=== PATIENT | female | born 1960 | race Caucasian/White ===

== ENCOUNTER → 2016-03-06 | Outpatient (CLI) | payer MEDICAID ==
[~2016-03-06] MED LIST: BREO ELLIPTA1 POW IH; BUPROPION HCL75 M1 PO; CARVEDILOL 1212.5 MG PO; CIPRO 500MG TA500 MG PO; CLINDAMYCIN HC300 MG PO; COREG12.5 MG PO; CYMBALTA60 MG PO; HYDROCODONE-APA1 TA1 PO; KEFLEX 500MG.500 MG PO; LEVAQUIN 500 M500 MG PO; LEVAQUIN500 MG PO; LISINOPRIL10 MG PO; LORTAB 5/500 501 TAB PO; MEDROL 4MG. DOSE4 MG PO; NICOTINE PATCH;21 MG TD; NORCO 325 MG-51 TAB PO; PREDNISONE 20MG20 MG PO; PREDNISONE20 MG PO; PRILOSEC20 MG PO; PROAIR HFA0.09 MG/AC IH; PROTONIX 40MG T40 MG PO; RISPERDAL 1 MG T1 MG PO; TESSALON PERLE100 MG PO; TRAMADOL 512 EACH/PA PO; VENTOLIN H0.09 MG/AC IH; VOLTAREN75 MG PO; ZITHROMAX Z-PA250 M2 PO
[2016-03-06 15:41] LABS: AMPHETAMINES/METAMPHETAMINES NEGATIVE ng/mL (<1000)
[2016-03-06 17:42] LABS: HEMOGLOBIN 15.5 g/dL (12.2-16.2); LYMPH # 2.1 K/mm3 (0.7-4.5); LYMPH % 25.9 % (10-50.0)
[2016-03-06 19:30] LABS: BUN 5 mg/dL (7-18)
[2016-03-06 19:46] LABS: GFR (ESTIMATED) 128 ML/MIN (59-)
== END ==
LOC: LAB 14:29
PROVIDERS: Emergency Medicine
DX: Z79.899 Other long term (current) drug therapy (principal); B95.7 Other staphylococcus as the cause of diseases classified elsewhere

== ENCOUNTER 2016-03-18 18:19 | Observation (INO) | payer MEDICAID ==
[~2016-03-18] VITALS: Ht 165.1 cm; Wt 103.2 kg
[~2016-03-18 18:19] MED LIST changes: -BREO ELLIPTA1 POW IH; -LEVAQUIN500 MG PO
[2016-03-18 18:24] VITALS: BP 153/92
--- NOTE | 2016-03-18 18:38 | Emergency Room Report ---
History of Present Illness Time Seen by 1819 Presenting Problem in Triage Pt arrived:Walked Presenting Problem:PT STATES BREATHING DIFFICULTY THAT BEGAN THREE DAYS AGO. STATES RECENT COUGH THAT IS NONPRODUCTIVE. DENIES V/D. STATES USING VENTOLIN INHALER AT HOME AT 1400. PT STATES WEARING O2 NC AT HOME AT 2L AT ALL TIMES. STATES FEELING TIRED. 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 N Clinical Suspician of Infection? N Mental Status: 1 - Regular (Normal Baseline) Sepsis Risk:Low Sepsis Risk Have you (or family members/close friends) recently traveled outside the [place]? N If Yes, where/when: Have you had exposure to infectious disease within the past month? N TB? Other? Specify: Comment The patient is sent from the office of her primary care practitioner for cough, shortness of breath, and hypoxia. The patient has severe chronic obstructive pulmonary disease and still smokes. She is oxygen dependent. She has an inhaler at home, but not a nebulizer. She has been sick for 3 days with a nonproductive cough, increasing shortness of breath and wheezing. She denies fever. She was admitted to the hospital in October in respiratory failure, she was started on BiPAP, but failed BiPAP and was electively intubated. ALLERGIES Coded Allergies: Penicillins (11/10/15) Sulfa (Sulfonamide Antibiotics) (11/10/15) phenobarbital (11/10/15) Home Medications Active Scripts ALBUTEROL (Ventolin Hfa) 1-2 PUFFS IH Q6HP PRN wheezing #1 POW Prov: 02/13/16 NICOTINE (Nicotine Patch) 21 MG TD DAILY #14 PATCH Ref 1 Prov: 11/16/15 Reported Medications Carvedilol (Carvedilol 12.5MG) 12.5 MG PO BID #60 Risperidone (Risperdal 1 Mg Tab) 2 MG PO QHS Lisinopril 10 MG PO DAILY #30 HYDROCODONE 5MG/APAP 325MG (Hydrocodon-Acetaminophen 5-325) 1 TAB PO BID BUPROPION HCL SR (Wellbutrin SR 100MG) 75 MG PO BID History Medical History General CAD? No Angina: Yes SD: No Hypertension? Yes Hyperlipidemia? Yes CHF? No DVT? No PE? No COPD? Yes Asthma? No Anemia? No GERD? No Gastric ulcers? No GI Bleed? No Hernia? No Thyroid Problems? No Hypothyroidism? No CVA? No Seizures? No Diabetes? No Renal Insuffiency? No End Stage Renal Disease? No UTI? Yes Stones? No BPH? No GB Disease: No Nephritic Syndrome? No Asplenia? No Hepatitis? No Sickle Cell Disease? No Arthritis? No Migraines? No Cataracts? No Glaucoma? No MRSA? No HIV? No TB? No Anxiety? No Depression? No Cancer? Yes Site: R BREAST More? Yes Additional hx: BIPOLAR Immunization Hx DT/Tetanus 5-10 Years Ago Flu [id number] Flu Season Pneumonia Received In Past Surgical Hx Previous Surgery?Y TRIPLE ORTHODESIS R. FOOT X 11. SINCE 1990 LT KNEE ARTHROSCOPY FACIAL SURGERY LUMPECTOMY RT BREAST RIGHT 5TH FINGER COLONSCOPY COLON BIOPSY RN CARDIAC CATH Hx LMP N/A Family History Family Hx Diabetes Yes CAD Yes Hypertension Yes Hyperlipidemia No Cancer Yes TB No Social History Smoking Hx Smoker: Current Every Day Smoker Tobacco: Yes Type Cigarettes Packs/day 1 1/2 - 2 Packs Alcohol Alcohol: Yes Review of Systems All Other Systems Reviewed and Negative Constitutional denies fever Respiratory cough, shortness of breath, wheezing Physical Exam Vital Signs Vital Signs Date Time Temp Pulse Resp B/P Pulse O2 O2 Flow FiO2 Ox Delivery Rate 03/18 1956 77 24 130/82 90 2 03/18 1925 77 24 153/86 95 2 03/18 1855 73 24 107/48 95 2 03/18 1824 97.7 76 24 153/92 91 2 General Appearance obese, alert and talkative Eye Exam - bilateral eye normal exam, bilateral eye PERRL, bilateral eye EOMI Ear, Nose, Throat hearing grossly normal, normal ENT inspection Neck normal inspection, non-tender, supple, full range of motion Respiratory Status Yes: trachea midline, chest symmetrical, non tender chest. No: respiratory distress. Lung Sounds bilateral: wheezing. Cardiovascular normal exam, regular rate/rhythm, no peripheral edema, no gallop, no JVD, no murmur, no rub, normal peripheral pulses Peripheral Pulses Pulses normal Yes Gastrointestinal normal bowel sounds, normal exam, non tender, soft, no organomegaly Back normal inspection, no CVA tenderness, no vertebral tenderness Extremities non-tender, normal range of motion, normal inspection Neurologic alert, dairy bacteriologist II-XII nml as tested, normal exam, oriented x 3 Mental status normal mood/affect Skin intact, normal color, warm/dry Lymphatic no adenopathy Medical Decision Making LABS/Meds/Orders Pt receiving controlled substance in ED? No Results/Orders Laboratory Tests 03/18/16 194: Influenza Type A Ag Pending, Influenza Type B Ag Pending 03/18/161937: VBG pH Pending, VBG Total CO2 Pending, VBG O2 Sat (Calc) Pending, VBG Base Excess Pending, Mixed VBG pCO2 Pending, Mixed VBG pO2 Pending, Mixed VBG HCO3 Pending 03/18/161934: VBG pH Pending, VBG Total CO2 Pending, VBG O2 Sat (Calc) Pending, VBG Base Excess Pending, Mixed VBG pCO2 Pending, Mixed VBG pO2 Pending, Mixed VBG HCO3 Pending 03/18/161834: Lactic Acid 1.1 03/18/161834: Sodium 134 L, Potassium 4.6, Chloride 94 L, Carbon Dioxide 36 H, BUN 7, Creatinine 0.6, Estimated Creat Clear 174, Estimated GFR (MDRD) 103, Glucose 97, Calcium 8.7, Total Bilirubin 0.4, AST 15, ALT 25, Alkaline Phosphatase 125 H, Creatine Kinase 23 L, CK-MB (CK-2) Rel Index 3.5, CK and CKMB Interp 0.8, Troponin I < 0.02, Total Protein 7.1, Albumin 3.3 L, Globulin 3.8 H, Albumin/ Globulin Ratio 0.9 L, WBC 8.3, RBC 4.70, Hgb 14.7, Hct 46.5, MCV 99.0 H, RDW 14.9, Plt Count 276, MPV 8.4, Gran % 68.0, Gran # 5.7, Lymphocytes % 22.6, Monocytes % 7.1, Eosinophils % 1.8, Basophils % 0.3, Lymphocytes # 1.9, Monocytes # 0.6, Eosinophils # 0.2, Basophils # 0.0, PUBS MCHC 31.7 L, MCH 31.3 H Current Medication Orders Sig/Henri Start time Last Medication Dose Route Stop Time Status Admin Levofloxacin/Dextrose 150 ML .STK-MED ONE 03/18 1919 DC IV Levofloxacin/Dextrose 150 ML ONCE ONE 03/18 1914 r 03/18 IV 03/18 Methylprednisolone 0 .STK-MED ONE 03/18 1851 DC Sodium Succinate .ROUTE Albuterol/Ipratropium 3 ML ONCE ONE 03/18 1845 DC 03/18 INH 03/18 1845 184 Methylprednisolone 125 MG ONCE ONE 03/18 1844 DC 03/18 Sodium Succinate IV 03/18 184 185 Orders Procedure Date/time Status Decision to admit 03/18 1952 Active CULTURE, SPUTUM 03/18 1917 Active INFLUENZA A&B ANTIGENS 03/18 1915 Active RT REQUEST DUONEB 03/18 1834 Active ARTERIAL BLOOD GAS REQUEST 03/18 1834 Active CHEST-PORTABLE 03/18 1834 Active CULTURE, BLOOD 03/18 1834 Active LACTIC ACID 03/18 1834 Complete CBC WITH AUTO DIFF 03/18 1834 Complete CARDIAC ENZYMES 03/18 1834 Complete CHEM 12 PROFILE 03/18 1834 Complete XRAY/CT/US XRAY/CT/US XRAY chest Comment X-ray interpreted by Lowell Smiley M.D.: Haziness of both lower lungs, possibly due to overlying breast tissue. No effusions seen. Progress - Patient refused arterial blood gas. 8:00 PM: I have discussed the case with Dr. Butler for Dr. Dover who agrees to admit the patient to the hospital. We discussed the patient's clinical information, including history, exam, laboratory and radiology results and ED course. Per hospital procedure, I will write temporary bridge inpatient orders on the patient. Specific orders requested by the admitting physician: Handheld nebulizers, steroids, antibiotics Departure Departure Disposition Still a Patient Clinical Impression Primary Impression: Chronic obstructive pulmonary disease with (acute) exacerbation Secondary Impressions: Acute bronchitis Qualifiers: Bronchitis organism: unspecified organism Qualified Code: J20.9 - Acute bronchitis, unspecified Hypoxia Condition STABLE Referrals Casey Frias (Family) ED Critical Care Critical Care No at 2000
[2016-03-18 18:47] LABS: HEMOGLOBIN 14.7 g/dL (12.2-16.2); LYMPH # 1.9 K/mm3 (0.7-4.5); LYMPH % 22.6 % (10-50.0)
[2016-03-18 19:08] LABS: BUN 7 mg/dL (7-18); GFR (ESTIMATED) 103 ML/MIN (59-)
[2016-03-18 22:12] VITALS: BP 130/82
[2016-03-19] VITALS (7 sets, daily range): BP systolic 134–154; BP diastolic 70–93
--- NOTE | 2016-03-19 06:12 | RADIOLOGY REPORT PS360 ---
CHEST-PORTABLE HISTORY: COUGH COMPARISON: 02/13/2016 FINDINGS: The study is underpenetrated and there are low lung volumes. There is prominence of the joelle and left greater than right with borderline cardiomegaly. Cannot adequately evaluate the mid to lower lung zones due to the technique. Recommend upright PA and lateral chest for further evaluation. There is increased density in the right lower lobe which could be due to underlying atelectasis or infiltrate. IMPRESSION: Limited study with prominent left hilum and possible right lower lobe atelectasis or infiltrate. Follow-up recommended
--- NOTE | 2016-03-19 06:59 | PHARMACY CLINIC NOTE ---
Patient Demographics Patient Demographics Admission date: 03/18/16 Date: 03/19/16 Time: 0659 Allergies Coded Allergies: Penicillins (11/10/15) Sulfa (Sulfonamide Antibiotics) (11/10/15) phenobarbital (11/10/15) HEIGHT- FT: 5 IN: 5.00 K.165 VTE General Information Labs: Laboratory Tests 03/18 1835 Hematology Hgb (12.2 - 16.2 g/dL) 14.7 Hct (37.0 - 47.0 %) 46.5 Plt Count (142 - 424 K/mm3) 276 Disclaimer The following section includes nursing documentation that has been pulled in for pharmacy review. Patient's VTE score: 6 Patient's VTE Risk: MOD RISK Clinical trial participant? No VTE prophylaxis NQF [id number] VTE prophylaxis ordered? Yes Type of prophylaxis/treatment: MY at 0659
--- NOTE | 2016-03-19 08:54 | HISTORY AND PHYSICAL REPORT ---
Demographics: Admit date: 03/18/16 Chief complaint: SOB PRIMARY DIAGNOSIS: COPD Allergies: Coded Allergies: Penicillins (11/10/15) Sulfa (Sulfonamide Antibiotics) (11/10/15) phenobarbital (11/10/15) History of present illness: History of present illness: 55 yr old female presents to ed after being seen in office yesterday for sob. Pt c/o of sob, cough and low o2 sat(82%). Pt states smoking 1 ppd, home 02 at night ,and sob that increases with walking. Pt states having a cold for 3 days and cough increasing. Pt states last pm she had a episode of confusion, unable to communicate and legs becoming weak in legs. Admited and cardiology consult to eval sob, d dimer to r/o pe, doppler to r/o tia. Past medical history: Family HX Diabetes Yes CAD Yes Hypertension Yes Hyperlipidemia No Cancer Yes TB No Immunization HX DT/Tetanus Unknown Flu 2015-FSN Pneumonia Received In Past TB Test in last year No General CAD? No Angina: Yes GA: No Hypertension? Yes Hyperlipidemia? No CHF? No DVT? No PE? No COPD? Yes Asthma? No Anemia? No GERD? No Gastric ulcers? No GI Bleed? No Hernia? No Thyroid Problems? No Hypothyroidism? No CVA? No Seizures? No Diabetes? No Renal Insuffiency? No UTI? Yes Stones? No BPH? No GB Disease: No Nephritic Syndrome? No Asplenia? No Hepatitis? No Sickle Cell Disease? No Arthritis? No Migraines? No Cataracts? No Glaucoma? No MRSA? No HIV? No TB? No Anxiety? No Depression? No Cancer? No Site: R BREAST More? Yes Additional hx: BIPOLAR Past Surgical HX Previous Surgery?Y TRIPLE ORTHODESIS R. FOOT X 11. SINCE 1990 LT KNEE ARTHROSCOPY FACIAL SURGERY LUMPECTOMY RT BREAST RIGHT 5TH FINGER COLONSCOPY COLON BIOPSY Current home meds: Active Scripts ALBUTEROL (Ventolin Hfa) 1-2 PUFFS IH Q6HP PRN wheezing #1 POW Prov: 02/13/16 NICOTINE (Nicotine Patch) 21 MG TD DAILY #14 PATCH Ref 1 Prov: 11/16/15 Reported Medications Carvedilol (Carvedilol 12.5MG) 12.5 MG PO BID #60 Risperidone (Risperdal 1 Mg Tab) 2 MG PO QHS Lisinopril 10 MG PO DAILY #30 HYDROCODONE 5MG/APAP 325MG (Hydrocodon-Acetaminophen 5-325) 1 TAB PO BID BUPROPION HCL SR (Wellbutrin SR 100MG) 75 MG PO BID Social Hx: Smoking HX Tobacco Yes Type Cigarettes Packs/day 1 1/2 - 2 PACKS Are you/the child exposed to second-hand smoke: Yes Alcohol Alcohol: No Hx of Drug Use Drug Use? No Review of systems: Constitutional see HPI, weakness. Respiratory see HPI, cough, shortness of breath, SOB with excertion, SOB at rest, wheezing. Cardiovascular see HPI Gastrointestinal/Abdominal No see HPI Genitourinary No: see HPI. Musculoskeletal No: no symptoms reported. Skin No: no symptoms reported. Neurological Yes: see HPI, weakness. Psychiatric Yes: anxious. Exam: Lab data for last 24 hours: Laboratory Tests 03/18/16 2020: VBG pH 7.28 L, VBG Total CO2 42.0 H, VBG O2 Sat (Calc) 26 L, Mixed VBG pCO2 84.5 H, Mixed VBG pO2 21.0 L, Mixed VBG HCO3 39.4 H 03/18/16 1940: Influenza Type A Ag NOT DETECTED, Influenza Type B Ag NOT DETECTED 03/18/161834: Lactic Acid 1.1 03/18/161834: Sodium 134 L, Potassium 4.6, Chloride 94 L, Carbon Dioxide 36 H, BUN 7, Creatinine 0.6, Estimated Creat Clear 174, Estimated GFR (MDRD) 103, Glucose 97, Calcium 8.7, Total Bilirubin 0.4, AST 15, ALT 25, Alkaline Phosphatase 125 H, Creatine Kinase 23 L, CK-MB (CK-2) Rel Index 3.5, CK and CKMB Interp 0.8, Troponin I < 0.02, Total Protein 7.1, Albumin 3.3 L, Globulin 3.8 H, Albumin/ Globulin Ratio 0.9 L, WBC 8.3, RBC 4.70, Hgb 14.7, Hct 46.5, MCV 99.0 H, RDW 14.9, Plt Count 276, MPV 8.4, Gran % 68.0, Gran # 5.7, Lymphocytes % 22.6, Monocytes % 7.1, Eosinophils % 1.8, Basophils % 0.3, Lymphocytes # 1.9, Monocytes # 0.6, Eosinophils # 0.2, Basophils # 0.0, PUBS MCHC 31.7 L, MCH 31.3 H Microbiology 03/18 1914 SPUTUM: Sputum Culture - RES 03/18 1914 SPUTUM: Gram Stain - RES 03/18 1834 BLOOD: Anaerobic Blood Culture - RECD 03/18 1834 BLOOD: Aerobic Blood Culture - RECD 03/18 1834 BLOOD: Anaerobic Blood Culture - RECD 03/18 1834 BLOOD: Aerobic Blood Culture - RECD Admission vital signs: 1ST Vital Signs Result Date Time Pulse Ox 91 03/18 1823 B/P 153/92 03/18 1823 O2 Flow Rate 2 03/18 1823 Temp 97.7 03/18 1823 Pulse 76 03/18 1824 Resp 24 03/18 1823 O2 Delivery OXYGEN 03/18 2211 Exam General appearance: normal appearance, alert, active, awake, no acute distress Eyes: normal exam, PERRLA ENT: normal exam Neck: normal inspection, full range of motion Cardiovascular: normal exam, regular rate & rhythm Respiratory: no respiratory distress, on oxygen, diminished breath sounds, wheezing ABD: normal exam, soft Genitourinary: normal voiding & quantity Extremities: normal exam, warm Musculoskeletal: normal exam Skin: normal exam, intact, warm Neuro: normal exam, alert, cardiac cath lab radiology technologist II-XII nml as tested, intact, no deficit, oriented Plan: Problem List 1. COPD exacerbation 2. Acute bronchitis 3. Hypoxia 4. TIA (transient ischemic attack) Plan: rounded with shelia. at 0853
[2016-03-19 09:41] LABS: ALLEN'S TEST ACCEPTABLE; OXYGEN 28
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
--- NOTE | 2016-03-19 11:49 | CARDIOVASCULAR REPORT ---
"Cerebrovascular Exam Indications: TIA 434.91. TDE. Pt not cooperative, she was either moving or snoring. Very limited images. IMPRESSIONS 1. The bilateral vertebral arteries are patent with normal antegrade flow. 2. Study suggests less than 20% stenosis involving the right internal carotid artery and the left internal carotid artery. Carotid duplex study. Complete study and Doppler flow study including spectral analysis, color and martin scale imaging. Height: Height: 165.1cm. Height: 65in. Weight: Weight: 103kg. Weight: 226.5lb. Body mass index: BMI: 37.8kg/m^2. Body surface area: BSA: 2.22m^2. Location: Bedside. Patient status: Inpatient. Tables: Arterial flow: + +--------+--------+ |Location |V sys |V ed | + +--------+--------+ |Right CCA - proximal|132cm/s |25.9cm/s| + +--------+--------+ |Right CCA - distal |122cm/s |36.9cm/s| + +--------+--------+ |Right ECA |70.4cm/s|--------| + +--------+--------+ |Right ICA - proximal|127cm/s |37.1cm/s| + +--------+--------+ |Right ICA - mid |122cm/s |42.7cm/s| + +--------+--------+ |Right ICA - distal |111cm/s |33.3cm/s| + +--------+--------+ |Right vertebral |74.2cm/s|--------| + +--------+--------+ |Left CCA - proximal |125cm/s |27.7cm/s| + +--------+--------+ |Left CCA - distal |121cm/s |35.8cm/s| + +--------+--------+ |Left ECA |93cm/s |--------| + +--------+--------+ |Left ICA - proximal |128cm/s |46.8cm/s| + +--------+--------+ |Left ICA - mid |127cm/s |47.5cm/s| + +--------+--------+ |Left ICA - distal |133cm/s |53.1cm/s| + +--------+--------+ |Left vertebral |77.9cm/s|--------| + +--------+--------+ Velocity ratios: + + + + + + | |Right, V sys|Right, V ed|Left, V sys|Left, V ed| + + + + + + |Max ICA/dist CCA|1.04 |1.16 |1.1 |1.48 | + + + + + + (Report amended ) Electronically signed by: Man Langley [id number]"
--- NOTE | 2016-03-19 13:27 | RADIOLOGY REPORT PS360 ---
CTA-CHEST HISTORY: ELEVATED D-DIMER,SOA,BRONCHITIS, PE PROTOCOL ORDERING PHYSICIAN: Jonathon Dover MD PATIENT AGE: 55 years TECHNIQUE: Helical acquisition obtained following the bolus administration of 60 mL of Isovue 370 followed by a saline bolus. Axial, sagittal, and coronal reformatted images are generated and reviewed. COMPARISON: 11/10/2015 FINDINGS: No evidence of pulmonary was. No evidence of aortic aneurysm or dissection. No mediastinal or hilar mass. There are a few small lymph nodes in mediastinum. There are dependent changes in the posterior hemithoraces bilaterally. Atelectatic changes are present in the left lower lobe medially and in the right lung base posteriorly. Previously noted left upper lobe collapse has resolved. No lobar consolidation or collapse. There are some atelectatic or fibrotic changes within the left upper lobe medially. No pleural effusion. Upper abdominal images are unremarkable. There are old bilateral rib fractures IMPRESSION: 1. No evidence of pulmonary embolus, aortic aneurysm, or dissection. 2. Atelectatic changes in the left lower lobe medially and in the right lung base posteriorly. 3. Old bilateral rib fractures
--- NOTE | 2016-03-19 17:04 | RADIOLOGY REPORT PS360 ---
ECHO ADULT PROCEDURE: 2-D M-mode and color Doppler study INDICATIONS FOR THE TEST: Chest pain + COPD+ Heart Murmur Tobacco Smoking+ Palpitations Fatigue Syncope+ Edema+ Hypertension+Diabetes Mellitus Rheumatic Fever SOB+FUENTES Obesity+Hyperlipidemia Family History HD Additional History PATIENT INFORMATION HEIGHT: 65 WEIGHT:227 GENDER: Female B/P:153/75 2-D/M-MODE INTERPRETATION: 2-D MEASUREMENTS OBSERVED VALUES IN CMS Right Ventricular Dimension (RVDd) 2.8 Interventricular Septum (Thickness)(IVsd) 1.4 Left Ventricular Internal Dimensions(LVIDd) 5.1 Left Ventricular Posterior Wall (Thickness)(LVPWd) 1.2 Aortic Root 2.5 Aortic Cusp Separation 2.2 Left Atrial Dimensions (LAD) 4.4 2D 1. The left atrium is mildly enlarged, the left ventricle is normal size, there is mild concentric left ventricular hypertrophy present, visually estimated ejection fraction of 55-60% with no obvious regional wall motion abnormality. 2. Mildly enlarged right ventricle with normal contractility, right atrium is mildly enlarged. 3. The aortic valve is minimally thickened and fibrosed, there is no aortic stenosis. 4. The mitral valve leaflets are minimally thickened there is no obvious mitral valve prolapse. There is no mitral stenosis. 5. The pulmonic valve not well visualized. 6. No significant pericardial effusion noted DOPPLER INTERROGATION: 1. The aortic outflow velocities within normal range, there is no aortic stenosis or aortic insufficiency. 2. The mitral inflow velocity within normal range, there is no mitral stenosis, there is mild mitral regurgitation. 3. There is mild tricuspid regurgitation noted, tricuspid regurgitant jet velocity insufficient for calculation of the right ventricular systolic pressure. 4. No significant pulmonic insufficiency seen. CONCLUSION: 1. Mild biatrial enlargement, normal left ventricular size, mild concentric left ventricular hypertrophy, visually estimated ejection fraction 55-60% with no obvious regional wall motion abnormality. 2. Mildly enlarged right ventricle with normal contractility. 3. Mild mitral and tricuspid regurgitation, tricuspid regurgitant jet velocity insufficient for acquisition of the right ventricular systolic pressure. 4. No significant pericardial effusion noted.
[2016-03-20 04:07] VITALS: BP 141/80
[2016-03-20 06:49] LABS: HEMOGLOBIN 13.7 g/dL (12.2-16.2); LYMPH # 0.7 K/mm3 (0.7-4.5)
[2016-03-20 08:26] LABS: NEUTROPHILS 94 % (42-76); STOMATOCYTE 4+
[2016-03-20 08:34] VITALS: BP 160/95
[2016-03-20] MEDS ORDERED: LEVAQUIN500 MG PO (09:19)
[2016-03-20] MEDS ORDERED: PREDNISONE 20MG20 MG PO (09:20)
[2016-03-20] MEDS ORDERED: BREO ELLIPTA1 POW IH (09:21)
--- NOTE | 2016-03-20 09:24 | ACUTE CARE PROGRESS NOTE (QUA) ---
Progress Notes Subjective Date 03/20/16 Time 0922 Patient/family reports: feeling better, no complaints Nursing reports: alert Objective Findings Laboratory Tests 03/20/16 0635: Sodium 141, Potassium 4.9, Chloride 102, Carbon Dioxide 40 H, BUN 12, Creatinine 0.6, Estimated Creat Clear 171, Estimated GFR (MDRD) 103, Glucose 142 H, Calcium 8.7, Total Bilirubin 0.2, AST 19, ALT 28, Alkaline Phosphatase 99, Total Protein 6.5, Albumin 2.8 L, Globulin 3.7 H, Albumin/Globulin Ratio 0.8 L, WBC 13.6 H, RBC 4.28, Hgb 13.7, Hct 43.9, MCV 102.7 H, RDW 14.4, Plt Count 269, MPV 8.3, Gran % 92.1 H, Gran # 12.5 H, Total Counted 100, Lymphocytes % 5.0 L, Monocytes % 2.7, Eosinophils % 0.2, Basophils % 0.0 L, Neutrophils 94 H, Lymphocytes (Manual) 3 L, Lymphocytes # 0.7, Monocytes (Manual) 3, Monocytes # 0.4, Eosinophils # 0.0, Basophils # 0.0, Platelet Estimate NORMAL, Stomatocytes 4+, PUBS MCHC 31.2 L, MCH 32.0 H Vital Signs Date Time Temp Pulse Resp B/P Pulse O2 O2 Flow FiO2 Ox Delivery Rate 03/20 0853 20 03/20 0834 2 03/20 0834 97.7 93 20 160/95 90 OXYGEN 2 03/20 0656 2 03/20 0509 2 03/20 0407 99.0 90 24 141/80 94 OXYGEN 03/20 0258 2 03/20 0050 2 03/19 2257 86 ROOM AIR 03/19 2255 2 03/191 22 03/19 2033 3 03/19 2032 98.9 94 22 137/72 91 3 03/19 1956 98.9 94 22 137/72 91 OXYGEN 03/19 1854 97 OXYGEN 2 03/19 1852 3 03/19 1726 3 03/19 1600 3 03/19 1509 3 03/19 1417 3 03/19 1300 3 03/19 1142 3 03/19 1142 97.5 90 22 154/93 95 OXYGEN 3 03/19 1056 3 03/19 1004 3 Current Medications Acetaminophen/Hydrocodone Bitart 0 .STK-MED ONE PO (DC) Risperidone 2 MG QHS PO Acetaminophen/Hydrocodone Bitart 0 .STK-MED ONE PO (DC) Levofloxacin/Dextrose 150 ML Q24H IV Iopamidol 70 ML ONCE ONE IV (DC) Sodium Chloride 20 ML ONCE ONE IV (DC) Sodium Chloride 20 ML ONCE ONE IV (DC) Sodium Chloride 10 ML PRN PRN IV (DC) Albuterol/Ipratropium 0 .STK-MED ONE INH (DC) Bupropion HCl 75 MG BID PO Lisinopril 10 MG DAILY PO Nicotine 21 MG DAILY TD Albuterol/Ipratropium 3 ML QIDRT INH Acetaminophen/Hydrocodone Bitart 1 TAB BID PO Carvedilol 12.5 MG BID PO Methylprednisolone Sodium Succinate 80 MG Q8 IV Acetaminophen 650 MG Q4HP PRN PO Influenza Virus Vaccine Quadrival 0.5 ML PRN PRN IM Sodium Chloride 10 ML PRN PRN IV Last VS-Temp:97.7 B/P:160/95 Pulse:93 Resp:20 SaO2:90 OXYGEN Last weight lbs:227 oz:07 K.165 Method:Bed Scales Exam General appearance: normal appearance, alert, active, awake, no acute distress Eyes: normal exam ENT: normal exam Neck: normal inspection Cardiovascular: normal exam, regular rate & rhythm Respiratory: on oxygen, diminished breath sounds, wheezing ABD: normal exam Genitourinary: normal voiding & quantity Extremities: normal exam Musculoskeletal: normal exam Skin: normal exam, normal color Neuro: normal exam, alert, intact, no deficit, normal mood/affect Reviewed: allergies, medications, vital signs, lab results, radiology report, consult note Assessment/Plan Problem List 1. COPD exacerbation 2. Acute bronchitis Qualifiers: Bronchitis organism: unspecified organism Qualified Code: J20.9 - Acute bronchitis, unspecified 3. Hypoxia 4. TIA (transient ischemic attack) Patient condition Stable Plan: initiate discharge plan This inpt stay is expected to cross 2 MNs from start of care Yes Comments: ROUNDED WITH SLIM Antibiotic Stewardship (2) Current Culture Results Microbiology 03/18 1914 SPUTUM: Sputum Culture - RES 03/18 1914 SPUTUM: Gram Stain - RES 03/18 1834 BLOOD: Anaerobic Blood Culture - RECD 03/18 1834 BLOOD: Aerobic Blood Culture - RECD at 0924
--- NOTE | 2016-03-20 09:28 | DISCHARGE SUMMARY STANDARD ---
Demographics Admit date: 03/18/16 Discharge date: 03/20/16 History of present illness History of present illness 55 yr old female presents to ed after being seen in office yesterday for sob. Pt c/o of sob, cough and low o2 sat(82%). Pt states smoking 1 ppd, home 02 at night ,and sob that increases with walking. Pt states having a cold for 3 days and cough increasing. Pt states last pm she had a episode of confusion, unable to communicate and legs becoming weak in legs. Admited and cardiology consult to eval sob, d dimer to r/o pe, doppler to r/o tia. The above per Dr. Dover. Cardiology consulted for episode of confusion and weakness. Pt denies any recent chest pain with exertion or rest, palpitations or near-syncope/syncope. Per patient she experienced an episode of decreased consciousness and weakness with shaking around 5 AM today when staff attempted to wake her. Reportedly she was talking but not making sense. She does not remember the event. Denies any loss of bowel or bladder continence. Since this AM she has felt weak when trying to stand up. No prolonged confusion noted. She is sitting up in bed eating lunch without complaint at this time. No previous history of seizure disorder or CVA. No unilateral weakness, numbness, tingling or headache. EKG today is sinus and normal. Hospital Course Hospital Course: COPD- IV STREOIDS, ANTIBOTICS,INHALER, BREATHING TREATMENTS, CT R/O PE-NEG TIA-CARDIOLOGY CONSULT- CAROTID DOPPLER WNL, Discharge diagnoses Problem List 1. COPD exacerbation 2. Acute bronchitis 3. Hypoxia 4. TIA (transient ischemic attack) Medications Medications: Discharge meds are as noted. Comment: ROUNDED WITH SLIM Follow up Follow up in office in: 6 DAYS with: Slim SALEH,Jonathon Garvin Comment: ROUNDED WITH SLIM at [id number]
[2016-03-20 10:01] VITALS: BP 160/95
== END 2016-03-20 10:00 | disposition home or self-care (01) ==
LOC: ER 18:19 → 2ND 20:02 → ER 20:02 → 2ND 20:36
PROVIDERS: Emergency Medicine
DX: J44.1 Chronic obstructive pulmonary disease with (acute) exacerbation (principal); G45.9 Transient cerebral ischemic attack, unspecified; Z99.81 Dependence on supplemental oxygen; J20.9 Acute bronchitis, unspecified; J44.0 Chronic obstructive pulmonary disease with (acute) lower respiratory infection; Z72.0 Tobacco use; I10 Essential (primary) hypertension; F31.9 Bipolar disorder, unspecified
CPT/HCPCS: G0378; Q9967

== ENCOUNTER → 2016-04-03 | Outpatient (CLI) | payer MEDICAID ==
[~2016-04-03] MED LIST changes: +BREO ELLIPTA1 POW IH; +LEVAQUIN500 MG PO
[2016-04-03 18:12] LABS: AMPHETAMINES/METAMPHETAMINES NEGATIVE ng/mL (<1000)
== END ==
LOC: LAB 17:11
PROVIDERS: Emergency Medicine
DX: Z79.899 Other long term (current) drug therapy (principal)

== ENCOUNTER → 2016-12-04 | Outpatient (CLI) | payer MEDICAID ==
[~2016-12-04] MED LIST changes: +SYMBICORT 10.10.2 M1; +WELLBUTRIN SR150 M1
[2016-12-04 15:17] LABS: AMPHETAMINES/METAMPHETAMINES NEGATIVE ng/mL (<1000)
== END ==
LOC: LAB 12:39
PROVIDERS: Emergency Medicine
DX: N39.0 Urinary tract infection, site not specified (principal); Z79.899 Other long term (current) drug therapy

== ENCOUNTER → 2016-12-17 | Outpatient (CLI) | payer MEDICAID ==
--- NOTE | 2016-12-23 10:00 | RADIOLOGY REPORT PS360 ---
DIG MAMM-SCREEN QUINN W/CAD CAD Screening ORDERING PHYSICIAN : Jonathon Dover MD PATIENT AGE: 56 years GENDER: Female COMPARISON: Previous mammograms: September 2014, October 2012, November INDICATION: Routine screening no hormones no new complaints noncontributory family history TECHNIQUE: Standard CC and MLO images were obtained. R2 CAD reviewed. FINDINGS: Low-density breast with fatty replacement bilaterally RIGHT BREAST: No new findings. Stable. The small 6 mm nodular density, likely tiny intramammary node, is again seen at the lateral right breast. A metallic marker from previous percutaneous biopsy again noted deep lateral breast as well LEFT BREAST: No new findings. Stable The tiny 5 mm nodular density at the far lateral left breast is unchanged since studies dating back to 2009. Likely small intramammary lymph node. No new findings. IMPRESSION: Stable bilateral mammogram with no new findings. BI-RADS CATEGORY: 2_Benign RECOMMENDED FOLLOWUP: 12M 12 MONTH FOLLOW-UP (A letter has been sent to the patient regarding results of the study.)
== END ==
LOC: RAD 12-16 09:00
DX: Z12.31 Encounter for screening mammogram for malignant neoplasm of breast (principal)
CPT/HCPCS: G0202

== ENCOUNTER → 2017-01-04 | Outpatient (CLI) | payer MEDICAID ==
[2017-01-04 13:52] LABS: AMPHETAMINES/METAMPHETAMINES NEGATIVE ng/mL (<1000)
== END ==
LOC: LAB 12:27
PROVIDERS: Emergency Medicine
DX: Z79.899 Other long term (current) drug therapy (principal)

== ENCOUNTER → 2017-02-02 | Outpatient (CLI) | payer MEDICAID ==
[~2017-02-02] MED LIST changes: +HYDROCODONE/ACE1 TA5 PO; +LISINOPRIL/HCTZ1 TA3 PO
[2017-02-02 20:12] LABS: AMPHETAMINES/METAMPHETAMINES NEGATIVE ng/mL (<1000)
== END ==
LOC: LAB 17:29
PROVIDERS: Emergency Medicine
DX: Z79.899 Other long term (current) drug therapy (principal)